=== PATIENT | male | born 1995 | race Caucasian/White ===

== ENCOUNTER 2017-04-01 12:49 | Emergency (ER) | payer OTHER ==
[2017-04-01 13:10] LABS: APPEARANCE,URINE Clear (CLEAR); COLOR,URINE Yellow (YELLOW); OCCULT BLOOD,URINE Negative (NEGATIVE); UROBILINOGEN URINE 0.2 Eu (0.2-1.0)
[2017-04-01] MEDS: KETOROLAC TROMETHAMINE 60 MG/2 ML VIAL IM ONE (13:19)
[2017-04-01 14:29] VITALS: BP 112/62
--- NOTE | 2017-04-01 17:53 | Diagnostic Imaging Report ---
[facility] [address] [facility] [address] [address] Report Submission Date: April 01, 2017 2:04:49 PM CDT Patient Study Name: KALEY NEWMAN Date: April 01, 2017 1:02:05 PM CDT Modality Type: CR Gender: M Description: SPINE : 89 Institution: [facility] Physician: BRAD STANLEY Lumbar spine three views Clinical history pain Technique AP lateral cone-down FINDINGS: There are 5 lumbar vertebra. No compression fracture or lytic change is seen. There is disc space narrowing at L5-S1. Minimal dextroscoliosis is present. There is no congenital anomaly. IMPRESSION: L5-S1 disc space narrowing Mild dextroscoliosis No acute lumbar spine pathology Electronically signed on April 01, 2017 2:04:49 PM CDT by: Jorge SMITH
--- NOTE | 2017-04-01 18:04 | ED Physician Documentation ---
Low Back Pain - HISTORIAN Historian: patient - HPI Chief Complaint: Low Back Pain/ Injury Additional Information: Pt states that he fell inside a shipping container reaching for a box and fell approximately 10 ft injuring his left lower back- pt denies hitting head or neck - no LOC- History: other (has had a pinched nerve in the past to the back) Onset: hours (11:30 today) Duration: continues in ED Recent Injury: Yes (fall 10 ft) Context: fall Where: work Other Injuries: back Severity: moderate Quality: burning, dull (increases with palpation), other (sore with movement) Associated Symptoms: denies: fever, chills, sweating, incontinence, problems urinating Worsened By:: other (movement and palpation) Relieved By: remaining still Further Comments: no - ROS CONST: no problems CVS/RESP: none EYES/ENT: none MS/SKIN/LYMPH: back pain Neuro/Psych: none GI/: denies: abdominal pain, black stools, other - PAST HX Past History: sciatica Other History: denies: aortic aneurysm, cancer chemo, cancer radiation, cardiac disease, CAD, arrhythmias, angina, CHF, CVA, diabetes Type 1, diabetes Type 2, hepatitis, hypertension, peptic ulcer disease, prostatitis, TIA, HIV, other Surgeries/Procedures: none Immunizations: UTD Allergies/Adverse Reactions: Allergies Allergy/AdvReac Type Severity Reaction Status Date / Time No Known Allergies Allergy Verified 04/01/17 13:01 Home Medications: Ambulatory Orders Medication Instructions Recorded Cyclobenzaprine HCl [Flexeril] 5 mg PO TID PRN #30 tablet 04/01/17 Naproxen [Naprosyn] 500 mg PO BID #30 tablet 04/01/17 - SOCIAL HX Smoking History: non-smoker Alcohol Use: none Drug Use: none - FAMILY HX Family History: none - VITAL SIGNS Vital Signs: Vital Signs Temp Pulse Resp BP Pulse Ox 66 16 112/62 98 04/01/17 14:28 04/01/17 14:28 04/01/17 14:28 04/01/17 14:28 - REVIEWED ASSESSMENTS Nursing Assessment Reviewed: Yes Vitals Reviewed: Yes Progress - Progress Progress: pt resting comfortably- states pain is better after Toradol injection ED Results Lab/Radiology - Lab Results Lab Results: Lab Results 04/01/17 13:05 Urine Color Yellow (YELLOW) Urine Appearance Clear (CLEAR) Urine pH 6.0 (5.0 - 8.0) Ur Specific Prosser 1.020 (1.010-1.030) Urine Protein Negative mg/dL mg/dL (NEGATIVE) Urine Ketones Negative mg/dL mg/dL (NEGATIVE) Urine Occult Blood Negative (NEGATIVE) Urine Nitrite Negative (NEGATIVE) Urine Bilirubin Negative (NEGATIVE) Urine Urobilinogen 0.2 Eu Eu (0.2-1.0) Ur Leukocyte Esterase Negative (NEGATIVE) Urine Glucose Negative mg/dL mg/dL (NEGATIVE) - Radiology Radiology Impressions: Report Submission Date: April 01, 2017 2:04:49 PM CDT Patient Study Name: KALEY NEWMAN Date: April 01, 2017 1:02:05 PM CDT Modality Type: CR Gender: M Description: SPINE : 97 Institution: [facility] Physician: BRAD STANLEY Lumbar spine three views Clinical history pain Technique AP lateral cone-down FINDINGS: There are 5 lumbar vertebra. No compression fracture or lytic change is seen. There is disc space narrowing at L5-S1. Minimal dextroscoliosis is present. There is no congenital anomaly. IMPRESSION: L5-S1 disc space narrowing Mild dextroscoliosis No acute lumbar spine pathology Electronically signed on April 01, 2017 2:04:49 PM CDT by: Jorge Thornton - Orders Orders: ED Orders Category Date Time Status L SPINE 2 OR 3 VIEWS [RAD] Stat Exams 04/01/17 Completed URINALYSIS Routine Lab 04/01/17 13:05 Completed Ketorolac Tromethamine [Toradol] Med 04/01/17 13:04 Discontinued 60 mg IM NOW ONE Low Back Pain/Injury - Physical Exam General Appearance: alert, mild distress EENT: eye inspection normal, other (no tenderness to palpation) Neck: non-tender, painless ROM Resp/CVS: chest non-tender, breath sounds nml, heart sounds nml, no resp. distress, lungs clear Abdomen: non-tender Back: muscle spasm, other (pain with palpation over right perilumbar/flank area , no bony abnl noted) Neuro/Psych: oriented x3, motor nml, sensation nml, reflexes nml, mood/affect nml Skin: warm/dry, normal color Extremities: non-tender, normal range of motion, no evidence of injury Discharge Clincal Impression: Lumbar back sprain Prescriptions: Cyclobenzaprine HCl [Flexeril] 5 mg PO TID PRN #30 tablet PRN Reason: muscle spasms Naproxen [Naprosyn] 500 mg PO BID #30 tablet Referrals: Primary Doctor,No [Primary Care Provider] - 2 Days Additional Instructions: Use cool compresses May take Naproxen twice a day Take Flexeril 5mg by mouth 3 times a day as needed for muscle spasms Follow up with primary care provider if no improvement Home Medications: Ambulatory Orders Cyclobenzaprine HCl [Flexeril] 5 mg PO TID PRN #30 tablet 04/01/17 Naproxen [Naprosyn] 500 mg PO BID #30 tablet 04/01/17 Condition: Good Disposition: 01 HOME, SELF-CARE Decision to Admit: NO Decision Time: 14:18
== END 2017-04-01 14:20 | disposition home or self-care (01) ==
LOC: ED 12:49
DX: S39.012A Strain of muscle, fascia and tendon of lower back, initial encounter (principal); W19.XXXA Unspecified fall, initial encounter; Y93.9 Activity, unspecified; Y99.9 Unspecified external cause status
CPT/HCPCS: 72100; 81002; 96372; 99283; J1885

== ENCOUNTER 2017-06-05 23:31 | Emergency (ER) | payer SELFPAY ==
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
[2017-06-06 00:20] LABS: BASOPHILS % 0.7 (0.0-1.5); MEAN CORPUSCULAR HEMOGLOBIN 28.5 pg (28.0-34.0); MEAN CORPUSCULAR VOLUME 87.6 fl (80.0-100.0); MONOCYTES % 4.7 % (0.0-11.0); NEUTROPHILS # 4.2 # k/uL (1.4-7.7)
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
[2017-06-06 00:38] LABS: eGFR (African) > 60; eGFR (Non-African) > 60
[2017-06-06 01:51] VITALS: BP 111/75
[2017-06-06 05:24] LABS: AMPHETAMINE NEGATIVE ng/mL (<1000); BARBITURATES NEGATIVE ng/mL (<300); CANNABINOIDS NEGATIVE ng/mL (< 50); COCAINE NEGATIVE ng/mL (<150); METHAMPHETAMINE NEGATIVE ng/mL (<1000); METHYLENEDIOXYMETHAMPHETAMINE NEGATIVE ng/mL (<500); OPIATES NEGATIVE ng/mL (<300)
[2017-06-06 05:25] LABS: APPEARANCE,URINE CLEAR (CLEAR); COLOR,URINE YELLOW (YELLOW); OCCULT BLOOD,URINE NEGATIVE (NEGATIVE); UROBILINOGEN URINE 0.2 Eu (0.2-1.0)
== END 2017-06-06 01:15 | disposition home or self-care (01) ==
LOC: ED 23:31
DX: S00.83XA Contusion of other part of head, initial encounter (principal); X58.XXXA Exposure to other specified factors, initial encounter; Y93.9 Activity, unspecified; Y99.9 Unspecified external cause status
CPT/HCPCS: 70450; 72125; 80053; 80320; 80377; 81002; 85025; L0120; 99283; G0480; G0481; S1016

== ENCOUNTER 2018-03-31 11:22 | Emergency (ER) | payer SELFPAY ==
[2018-03-31 11:40] VITALS: BP 118/51
--- NOTE | 2018-03-31 11:48 | ED Physician Documentation ---
General Adult - HISTORIAN Historian: patient - HPI Stated Complaint: Back pain Chief Complaint: Low Back Pain/ Injury Additional Information: 22yo white male who has been having some intermittent episodes for about 4 years. related to an old football injury. Started to have problems again about 2 days ago. No precipitating factor noted. 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 Walking or bending over makes the pain worse. Discribed as a sharp jabbing type pain. Layingon the left side seems to help some. Has had some ring worm type rash on thigh and chest area. Has used OTC product which did not seem to help. Has been present for about 2 months. Timing: still present - ROS CONST: no problems. denies: fever, chills - PAST HX Past History: none Other History: none Surgeries/Procedures: none Immunizations: UTD Allergies/Adverse Reactions: Allergies Allergy/AdvReac Type Severity Reaction Status Date / Time No Known Allergies Allergy Verified 03/31/18 11:41 Home Medications: Ambulatory Orders Medication Instructions Recorded NK [NK] 06/06/17 - SOCIAL HX Smoking History: non-smoker Alcohol Use: none Drug Use: none - FAMILY HX Family History: No - VITAL SIGNS Vital Signs: Vital Signs Temp Pulse Resp BP Pulse Ox 97.9 F 69 16 118/51 99 03/31/18 11:30 03/31/18 11:30 03/31/18 11:30 03/31/18 11:30 03/31/18 11:30 - REVIEWED ASSESSMENTS Nursing Assessment Reviewed: Yes Vitals Reviewed: Yes ED Results Lab/Radiology - Radiology Radiology Impressions: Examination: Plain film lumbar spine History: PT STATES LOW BACK PAIN X2 YEARS (Hx) Findings: 3 views of the lumbar spine demonstrate normal height. Minimal L5-S1 disc space narrowing. No anterior compression. No soft tissue abnormalities. Impression: No acute osseous process. No compression deformity. If patient is experiencing neurologic symptoms, consider obtaining MRI to further evaluate. General Adult Physical Exam - PHYSICAL EXAM GENERAL APPEARANCE: moderate distress NECK: normal inspection RESPIRATORY: no resp distress, chest non-tender, breath sounds normal. No: wheezes, rales, rhonchi CVS: reg rate & rhythm, heart sounds normal, equal pulses, no murmur BACK: no CVA tenderness, other (mild tender to palpation over the lower lumbar/ sacral are on the right, no bony abnl noted. Patient does have some pain with ROM of twisting torso. R hip FROM.) SKIN: warm/dry, other (two patches over the right ant thigh about 1 & 1.4 cm, ant chest near axilla 1cm, all are annular riased red borders with some central clearing. ) EXTREMITIES: non-tender, normal range of motion NEURO: oriented X3, mood/affect nml, cognition normal Discharge Clincal Impression: Back pain at L4-L5 level, Tinea corporis Referrals: Primary Doctor,No [Primary Care Provider] - 2 Days Additional Instructions: Advised to do exercises. Take Aleve 220mg tablets, take two tablets with food twice a day as needed for pain. Try some Lamisil cream to the skin lesions twice a day until cleared for 1 week. Condition: Stable Disposition: 01 HOME, SELF-CARE Decision to Admit: NO Date of Decison to Admit: 03/31/18 Decision Time: 12:03
[2018-03-31] MEDS ORDERED: KETOROLAC TROMETHAMINE 60 MG/2 ML VIAL IM ONE (11:56)
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
== END 2018-03-31 12:53 | disposition home or self-care (01) ==
LOC: ED 11:22
DX: M54.5 Low back pain (principal); B35.4 Tinea corporis
CPT/HCPCS: 72110; J1885; 96372; 99284

== ENCOUNTER 2018-04-21 19:34 | Emergency (ER) | payer SELFPAY ==
[2018-04-21] MEDS: CEPHALEXIN 250 MG CAPSULE ONE (20:21)
[2018-04-21] MEDS: CEPHALEXIN 250 MG CAPSULE PO ONE (20:21)
[2018-04-21] MEDS: ACYCLOVIR 200 MG CAPSULE PO SCH (20:28)
[2018-04-21 20:45] VITALS: BP 119/68
--- NOTE | 2018-04-21 21:07 | ED Physician Documentation ---
Skin Rash - HPI Stated Complaint: Rash Chief Complaint: General Adult Onset: days ago (1) Timing: still present Location: facial Quality: itchy Identified Cause?: No Where: work Further Comments: yes (Pt is a 22 yo male with lesions below his L eye. Pt first noticed this yesterday, but condition appears to be spreading. It is painful and throbbing when pt is in a hot environment, but otherwise is not painful. 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 No systemic sx. No previous hx of this problem.) - ROS CONST: none CVS/RESP: none EYES/ENT: other (lesions below L eye) GI/: none MS/SKIN/LYMPH: rash (lesions below L eye) NEURO/PSYCH: none - PAST HX Past History: none Other History: none Allergies/Adverse Reactions: Allergies Allergy/AdvReac Type Severity Reaction Status Date / Time No Known Allergies Allergy Verified 04/21/18 20:05 Home Medications: Ambulatory Orders Medication Instructions Recorded NK [NK] 06/06/17 - SOCIAL HX Smoking History: non-smoker - FAMILY HX Family History: none - VITAL SIGNS Vital Signs: Vital Signs Temp Pulse Resp BP Pulse Ox 98.2 F 60 16 119/68 100 04/21/18 20:41 04/21/18 20:41 04/21/18 20:41 04/21/18 20:41 04/21/18 20:41 - REVIEWED ASSESSMENTS Nursing Assessment Reviewed: Yes Vitals Reviewed: Yes Progress - Progress Progress: Rx Acyclovir 400 mg po tid x 10 days, 2 refills Rx Keflex 500 mg po tid x 10 days, 1st dose in ER. ED Results Lab/Radiology - Orders Orders: ED Orders Category Date Time Status Acyclovir Med 04/21/18 21:00 Ordered 400 mg PO QID Cephalexin [Keflex] Med 04/21/18 20:14 Discontinued 500 mg .ROUTE .STK-MED ONE Cephalexin [Keflex] Med 04/21/18 20:13 Discontinued 500 mg PO NOW ONE Skin Rash Physical Exam - EXAM General Appearance: no acute distress Skin: other (linear cluster of vesicular lesions below L eye, ? herpes zoster) Location: face Extremities: non-tender, nml ROM Neck: trachea midline Respiratory: no resp distress, chest non-tender, breath sounds normal CVS: reg. rate & rhythm, heart sounds nml Neuro/Psych: oriented x3 Discharge Clincal Impression: Rash, possible herpes zoster Referrals: Drew Huitron MD [Primary Care Provider] - Condition: Good Disposition: 01 HOME, SELF-CARE Decision to Admit: NO Decision Time: 20:40
== END 2018-04-21 20:45 | disposition home or self-care (01) ==
LOC: ED 19:34
DX: R21 Rash and other nonspecific skin eruption (principal)
CPT/HCPCS: 99283

== ENCOUNTER 2019-08-18 15:49 | Emergency (ER) | payer SELFPAY ==
[2019-08-18 16:08] VITALS: BP 129/50
--- NOTE | 2019-08-18 16:14 | ED Physician Documentation ---
Male Genitourinary Problems - HISTORIAN Historian: patient - HPI Stated Complaint: Painful Urination Chief Complaint: Male Genitourinary Problems Onset: days ago (5) Duration: continues in ED Severity: mild Further Comments: yes (he states he has had burning with urination for a week and he was tested for STI and this was negative. He continues to have burning and possibly frequency. No low back pain. NO fever. No new sexual encounters. NO penial discharge or pain) - Associated Symptoms Problems Urinating: discomfort w/ urination, pain w/ urination Testicular Pain: none Testicular Swelling: none - Sexual History Sexual History: unprotected intercourse - ROS CONST: none - PAST HX Past History: denies: other Allergies/Adverse Reactions: Allergies Allergy/AdvReac Type Severity Reaction Status Date / Time No Known Allergies Allergy Verified 08/18/19 16:08 Home Medications: Ambulatory Orders Medication Instructions Recorded NK 06/06/17 - SOCIAL HX Smoking History: non-smoker Alcohol Use: none Drug Use: none - FAMILY HX Family History: none - VITAL SIGNS Vital Signs: Vital Signs Temp Pulse Resp BP Pulse Ox 98.3 F 72 15 129/50 98 08/18/19 15:55 08/18/19 15:55 08/18/19 15:55 08/18/19 15:55 08/18/19 15:55 - REVIEWED ASSESSMENTS Nursing Assessment Reviewed: Yes Vitals Reviewed: Yes Male Genitourinary Problems - EXAM General Appearance: no acute distress, alert Abdomen: non-tender, abnml bowel sounds EENT: eye inspection normal, no signs of dehydration Neck: nml inspection Respiratory: no resp distress, chest non-tender, breath sounds normal CVS: reg rate & rhythm, heart sounds normal Back: non-tender. No: CVA tenderness Extremities: normal range of motion Neuro/Psych: oriented X3 Discharge Clincal Impression: Dysuria Referrals: Kuldeep Weiss MD [Primary Care Provider] - 2 Days Comments: 1. Pyrium 100 mg take 1 by mouth three times per day x 3 days 2. Increase fluids 3. Follow up with PCP for possible Urology referral 4. Return to ER for any increased concerns Condition: Stable Disposition: 01 HOME, SELF-CARE Decision to Admit: NO Date of Decison to Admit: 08/18/19 Decision Time: 16:18
[2019-08-19 06:37] LABS: APPEARANCE,URINE CLEAR (CLEAR); COLOR,URINE YELLOW (YELLOW); OCCULT BLOOD,URINE TRACE (NEGATIVE); UROBILINOGEN URINE 0.2 Eu (0.2-1.0)
== END 2019-08-18 16:21 | disposition home or self-care (01) ==
LOC: ED 15:49
DX: R30.0 Dysuria (principal)
CPT/HCPCS: 81002; 99283; 99284